=== PATIENT | female | born 1970 | race Asian ===

== ENCOUNTER 2017-04-20 10:22 | Emergency (ER) | payer MEDICAID, OTHER ==
[~2017-04-20] VITALS: Ht 162.6 cm; Wt 95.4 kg
[~2017-04-20 10:22] MED LIST: LEVO88TA4 PO; [UNRECOGNIZED DRUG - REMARK]
[2017-04-20] MEDS ORDERED: ALBUTEROL SULFATE 2.5 MG/3 ML NPPB ONE (11:00)
[2017-04-20] MEDS ORDERED: SODIUM CHLORIDE FLUSH 10ML SYR IVF ONE (11:00)
[2017-04-20 12:03] LABS: BLOOD UREA NITROGEN 14 mg/dL (7-18)
[2017-04-20] MEDS ORDERED: LEVO88TA2 PO (12:08)
[2017-04-20] MEDS ORDERED: VENL75TA PO (12:09)
[2017-04-20 12:10] LABS: ASPARTATE AMINO TRANSFERASE 19 U/L (15-37)
[2017-04-20 12:12] LABS: IS PT STATUS REG ER OR PRE ER? YES
[2017-04-20] MEDS ORDERED: ALBUTEROL SULFATE 2.5 MG/3 ML ONE (12:15)
[2017-04-20] MEDS ORDERED: BENZONATATE 100 MG CAPSULE PO ONE (13:30)
[2017-04-20 15:28] VITALS: BP 116/64
== END 2017-04-20 15:49 | disposition home or self-care (01) ==
LOC: ED 13:14
DX: J45.40 Moderate persistent asthma, uncomplicated (principal); E03.9 Hypothyroidism, unspecified
CPT/HCPCS: 36415; 71020; 71250; 80053; 83880; 84484; 85025; 93005; 94640; J7613

== ENCOUNTER → 2017-09-07 | Outpatient (CLI) | payer MEDICAID ==
[~2017-09-07] MED LIST changes: +LEVO88TA2 PO; +OMNIPAQUE 350 MG/ML, 100ML BOTTLE ONE; +VENL75TA PO
== END | disposition home or self-care (01) ==
LOC: CFH 12:52
PROVIDERS: ATTEND Nurse Practitioner
DX: K76.0 Fatty (change of) liver, not elsewhere classified (principal); J35.1 Hypertrophy of tonsils; J32.2 Chronic ethmoidal sinusitis; J32.3 Chronic sphenoidal sinusitis; J39.2 Other diseases of pharynx; M47.892 Other spondylosis, cervical region; M47.894 Other spondylosis, thoracic region; G47.30 Sleep apnea, unspecified
CPT/HCPCS: 70491; 71250; Q9967